=== PATIENT | female | born 1990 | race Two or more races ===

== ENCOUNTER 2017-01-15 09:39 | Emergency (ER) | payer OTHER ==
--- NOTE | 2017-01-15 09:46 | PDOC ---
History of Present Illness - General Chief Complaint: Nausea/Vomiting Stated Complaint: NAUSEA/ VOMITING Time Seen by Provider: 01/15/17 09:43 Past History - Past Medical History Allergies/Adverse Reactions: Allergies Allergy/AdvReac Type Severity Reaction Status Date / Time No Known Allergies Allergy Verified 01/15/17 09:41 Home Medications: Ambulatory Orders NK [No Known Home Medication] 05/15/14 Other medical history: none - Psycho/Social/Smoking Cessation Hx Anxiety: Yes Suicidal Ideation: No Smoking History: Never smoked Have you smoked in the past 12 months: No Number of Cigarettes Smoked Daily: 0 Information on smoking cessation initiated: No Hx Alcohol Use: No Drug/Substance Use Hx: No Substance Use Type: Alcohol Hx Substance Use Treatment: No *Physical Exam - Vital Signs Last Vital Signs Temp Pulse Resp BP Pulse Ox 98.5 F 140 H 18 139/73 100 01/15/17 09:41 01/15/17 09:41 01/15/17 09:41 01/15/17 09:41 01/15/17 09:41
[2017-01-15] MEDS ORDERED: SODIUM CHLORIDE 0.9% 500 ML INFUS.BAG IV STA (09:47)
[2017-01-15 09:56] VITALS: BMI 43.5
[2017-01-15 10:26] LABS: BASOPHIL 0.4 % (0-2.0); EOSINOPHIL 0.4 % (0-4.5); MCH 26.2 pg (25.7-33.7); MCHC 33.5 g/dl (32.0-36.0); MEAN CELL VOLUME 78.4 fl (80-96); MEAN PLT VOLUME 7.6 fl (7.5-11.1); NEUTROPHILS 84.5 % (42.8-82.8); PLATELET COUNT 302 K/MM3 (134-434); RDW 14.2 % (11.6-15.6); WHITE BLOOD COUNT 8.9 K/mm3 (4.0-10.0)
[2017-01-15 10:52] LABS: URINE APPEARANCE CLEAR; URINE BILIRUBIN NEGATIVE (NEGATIVE); URINE BLOOD NEGATIVE (NEGATIVE); URINE COLOR YELLOW; URINE GLUCOSE (UA) 1+ (NEGATIVE); URINE KETONE TRACE (NEGATIVE); URINE LEUK ESTERASE NEGATIVE (NEGATIVE); URINE NITRITE NEGATIVE (NEGATIVE); URINE PROTEIN NEGATIVE (NEGATIVE); URINE UROBILINOGEN NEGATIVE E.U./dl (0.2-1.0)
[2017-01-15 10:58] LABS: ALBUMIN 3.3 g/dl (3.4-5.0); ALK PHOS 67 U/L (45-117); ANION GAP 6 (8-16); BILIRUBIN,TOTAL 0.2 mg/dL (0.2-1.0); CALCIUM 8.4 mg/dL (8.5-10.1); CO2 26 mmol/L (21-32); CREATININE 0.8 mg/dL (0.55-1.02); GLUCOSE,RANDOM 93 mg/dL (74-106); SGOT/AST 13 U/L (15-37); SGPT/ALT 16 U/L (12-78); TOT PROT 6.9 g/dl (6.4-8.2)
--- NOTE | 2017-01-15 11:11 | PDOC ---
Attending Attestation - Resident Resident Name: Haydee Laurayvonosiel - HPI HPI: 01/15/17 15:13 26 y/o female presents to ed c/o nausea and vomiting with recent sick contacts, 01/15/17 15:14 - Physicial Exam PE: 01/15/17 15:14 Pt is non toxic appearing with a non focal physical exam - Medical Decision Making 01/15/17 15:15 26 y/o female with less than 24 hrs of nausea and vomiting started last night, pt with no pmd, presented to ed , was able to tolerate fluid with out vomitting labs noted and pt dc'd home
--- NOTE | 2017-01-15 12:04 | PDOC ---
History of Present Illness - General Chief Complaint: Nausea/Vomiting Stated Complaint: NAUSEA/ VOMITING Time Seen by Provider: 01/15/17 09:43 History Source: Patient Exam Limitations: No Limitations - History of Present Illness Initial Comments: 01/15/17 12:01 26 year old otherwise healthy female presenting with <24 hours of nausea, NBNB vomiting, and non-bloody diarrhea. States that she was fine a few days ago but noticed these symptoms yesterday evening. Her two nieces have had the same symptoms over the past few days. She has had some occasional chills. She denies any strange food ingestion, fevers, chest pain, palpitations or other sick signs. She does not have a PCP. Past History - Past Medical History Allergies/Adverse Reactions: Allergies Allergy/AdvReac Type Severity Reaction Status Date / Time No Known Allergies Allergy Verified 01/15/17 09:41 Home Medications: Ambulatory Orders NK [No Known Home Medication] 05/15/14 Other medical history: none - Psycho/Social/Smoking Cessation Hx Anxiety: Yes Suicidal Ideation: No Smoking History: Never smoked Have you smoked in the past 12 months: No Number of Cigarettes Smoked Daily: 0 Information on smoking cessation initiated: No Hx Alcohol Use: No Drug/Substance Use Hx: No Substance Use Type: Alcohol Hx Substance Use Treatment: No Review of Systems - Review of Systems Constitutional: No: Chills, Diaphoresis, Fever HEENTM: No: Eye Pain, Blurred Vision Respiratory: No: Shortness of Breath, SOB with Exertion Cardiac (ROS): No: Chest Pain, Irregular Heart Rate ABD/GI: Yes: Diarrhea, Nausea, Poor Appetite, Poor Fluid Intake, Vomiting, Indigestion, Abdominal cramping. No: Abdominal Distended, Abd. Pain w/ defecation, Constipated, Rectal Bleeding : No: Burning, Dysuria, Discharge Musculoskeletal: No: Back Pain, Gout, Joint Pain Integumentary: No: See HPI Neurological: No: Headache, Numbness, Paresthesia Psychiatric: No: Anxiety, Depression *Physical Exam - Vital Signs Last Vital Signs Temp Pulse Resp BP Pulse Ox 98.5 F 94 H 18 115/69 100 01/15/17 09:41 01/15/17 11:17 01/15/17 11:17 01/15/17 11:17 01/15/17 11:17 - Physical Exam General Appearance: Yes: Nourished, Appropriately Dressed. No: Apparent Distress HEENT: positive: EOMI, ALEJANDRO, Normal ENT Inspection, Normal Voice Respiratory/Chest: positive: Lungs Clear, Normal Breath Sounds. negative: Chest Tender, Respiratory Distress, Accessory Muscle Use Cardiovascular: positive: Regular Rhythm, Regular Rate, S1, S2 Gastrointestinal/Abdominal: positive: Normal Bowel Sounds, Flat, Soft. negative : Tender, Organomegaly Musculoskeletal: positive: Normal Inspection Extremity: positive: Normal Capillary Refill Integumentary: positive: Normal Color, Dry, Warm. negative: Cyanotic, Erythema Neurologic: positive: Fully Oriented, Alert ED Treatment Course - LABORATORY CBC & Chemistry Diagram: 01/15/17 10:15 01/15/17 10:15 - ADDITIONAL ORDERS Additional order review: Laboratory Results 01/15/17 01/15/17 10:15 10:15 Sodium 138 Potassium 4.4 Chloride 106 Carbon Dioxide 26 Anion Gap 6 L BUN 12 Creatinine 0.8 Creat Clearance w eGFR > 60 Random Glucose 93 Calcium 8.4 L Total Bilirubin 0.2 AST 13 L ALT 16 Alkaline Phosphatase 67 Total Protein 6.9 Albumin 3.3 L Serum , Qual Negative Urine Color Yellow Urine Appearance Clear Urine pH 7.0 Urine Protein Negative Urine Glucose (UA) 1+ H Urine Ketones Trace H Urine Blood Negative Urine Nitrite Negative Urine Bilirubin Negative Urine Urobilinogen Negative Ur Leukocyte Esterase Negative 01/15/17 10:15 RBC 4.84 MCV 78.4 L MCHC 33.5 RDW 14.2 MPV 7.6 Neutrophils % 84.5 H Lymphocytes % 11.2 Monocytes % 3.5 L Eosinophils % 0.4 Basophils % 0.4 - Medications Given in the ED: ED Medications Discontinued Medications Generic Name Dose Route Start Last Admin Trade Name Freq PRN Reason Stop Dose Admin Sodium Chloride 1,000 ml 01/15/17 09:47 01/15/17 10:23 Normal Saline - IV 01/15/17 09:48 1,000 ml ONCE STA Administration Medical Decision Making - Critical Care Time Total Critical Care Time (minutes): 15 - Medical Decision Making 01/15/17 11:13 26 year old otherwise healthy female presenting with gastroenteritis like symptoms in the setting of recent sick contacts with the same illness. Symptoms have been of one day duration without any symptomatic management. CBC, UA, and CMP were WNL and UPreg was negative. Physical exam was unimpressive. This is most likely a viral gastroenteritis. Patient can go home with symptomatic management. *DC/Admit/Observation/Transfer Diagnosis at time of Disposition: Gastroenteritis and colitis, viral - Discharge Dispostion Disposition: HOME Condition at time of disposition: Improved Admit: No - Patient Instructions Additional Instructions: You were seen for nausea, vomiting, and diarrhea for less than a day. We believe this is most likely a viral infection of your stomach which is a very common occurrence. You most likely got this from your nieces. We believe that you will get better in a few days. You should stay hydrated and try to eat foods that do not upset your stomach. If you do not notice improvement of your symptoms in a few days please return to the ED for further management. Also return to the ED if you are having fevers longer than a few hours, uncontrolled nausea, uncontrolled vomiting, bloody stools, or bloody vomiting. - Post Discharge Activity Work/School Note: Back to Work - Attestations Physician Attestion: 01/15/17 12:31 I, Dr. Moshe Laura, attest that this document has been prepared under my direction and personally reviewed by me in its entirety. I further attest, that it accurately reflects all work, treatment, procedures and medical decision -making performed by me.
[2017-01-15 12:46] VITALS: TEMP 98.2
[2017-01-15 12:47] VITALS: BP 128/77; PULSE 89
--- NOTE | 2017-01-17 13:53 | EKG ---
Test Reason : Blood Pressure : / mmHG Vent. Rate : 099 BPM Atrial Rate : 099 BPM P-R Int : 160 ms QRS Dur : 090 ms QT Int : 364 ms P-R-T Axes : 043 019 040 degrees QTc Int : 467 ms NORMAL SINUS RHYTHM NORMAL ECG NO PREVIOUS ECGS AVAILABLE Confirmed by FILIPPO ADORNO MD ([id number]) on 01/17/2017 1:53:07 PM Referred By: Confirmed By:FILIPPO ADORNO MD
== END 2017-01-15 12:47 | disposition home or self-care (01) ==
LOC: JER 09:39
DX: A08.4 Viral intestinal infection, unspecified (principal); B97.89 Other viral agents as the cause of diseases classified elsewhere
CPT/HCPCS: 36415; 80053; 81003; 84703; 85025; 93005; 93010; 99284-25

== ENCOUNTER 2018-09-08 10:03 | Emergency (ER) | payer OTHER ==
[2018-09-08 10:12] VITALS: BP 136/87; PULSE 90; TEMP 98.2; BMI 47.5
--- NOTE | 2018-09-08 10:51 | PDOC ---
History of Present Illness - General History Source: Patient - History of Present Illness Presenting Symptoms: Chest Pain - General Chief Complaint: Chest Pain Stated Complaint: CHEST PAIN Time Seen by Provider: 09/08/18 10:26 Past History - Past Medical History COPD: No Psychiatric Problems: Yes (ANXIETY & DEPRESSION) Other medical history: POLY CYSTIC OVARIAN SYNDROME - Immunization History Immunization Up to Date: Yes - Suicide/Smoking/Psychosocial Hx Smoking History: Never smoked Have you smoked in the past 12 months: No Number of Cigarettes Smoked Daily: 0 Hx Alcohol Use: No Drug/Substance Use Hx: No Substance Use Type: Alcohol Hx Substance Use Treatment: No - Past Medical History Allergies/Adverse Reactions: Allergies Allergy/AdvReac Type Severity Reaction Status Date / Time No Known Allergies Allergy Verified 01/15/17 09:41 Home Medications: Ambulatory Orders NK [No Known Home Medication] 05/15/14 Review of Systems - Review of Systems Respiratory: No: Shortness of Breath Cardiac (ROS): Yes: Chest Pain. No: Lightheadedness, Palpitations, Syncope *Physical Exam - Physical Exam General Appearance: Yes: Appropriately Dressed. No: Apparent Distress HEENT: positive: Normal Voice Neck: positive: Supple Respiratory/Chest: positive: Lungs Clear, Normal Breath Sounds. negative: Respiratory Distress Cardiovascular: positive: Regular Rate, S1, S2 Extremity: positive: Normal Inspection Integumentary: positive: Dry, Warm Neurologic: positive: Fully Oriented, Alert, Normal Mood/Affect - Vital Signs Last Vital Signs Temp Pulse Resp BP Pulse Ox 98.2 F 90 16 136/87 100 09/08/18 10:08 09/08/18 10:08 09/08/18 10:08 09/08/18 10:08 09/08/18 10:08 - Procedure Monitoring Vital Signs: Procedure Monitoring Vital Signs Temperature 98.2 F 09/08/18 10:08 Pulse Rate 90 09/08/18 10:08 Respiratory Rate 16 09/08/18 10:08 Blood Pressure 136/87 09/08/18 10:08 O2 Sat by Pulse Oximetry (%) 100 09/08/18 10:08 Medical Decision Making - Medical Decision Making 09/08/18 10:49 28 yo F, morbid obesity, PCOS, p/w chest pain. Pt states while on the train at about 8 AM this morning, she developed pressure-like substernal chest pain that radiated to her back, was intermittent and worse with deep inspiration. States symptoms lasted for 2 hours and has since resolved. No shortness of breath, diaphoresis, cough, fever or chills. No history of similar pain. No significant family history. No illicit drug use. Only recent travel was to [place] by bus over a week ago. No palpitations, leg pain/swelling See exam CP in young female w/ no sig pmhx Since resolved Unlikely ACS and doubt PE, no recent URI to suspect pericarditis Stable w/ normal exam EKG done and unremarkable as d/w ED attg No further w/u needed in ED as d/w attg -will dc w/ instruction to return to ED as needed (Cuate Connolly) *DC/Admit/Observation/Transfer Diagnosis at time of Disposition: Chest pain Qualifiers: Chest pain type: unspecified Qualified Code(s): R07.9 - Chest pain, unspecified - Discharge Dispostion Disposition: HOME Condition at time of disposition: Improved - Referrals Referrals: ON STAFF,NOT [Primary Care Provider] - - Patient Instructions Printed Discharge Instructions: DI for Chest Pain Additional Instructions: The cause of your chest pain is unclear at this time as your exam and your EKG was normal. If symptoms recur and persist and/or worsen, please return to the ER for further evaluation then - Post Discharge Activity Forms/Work/School Notes: Back to Work - Attestations Physician Attestion: I reviewed the case with the mid-level practitioner and agree with the mid- level practitioner's assessment, diagnosis and disposition. (Migdalia Ignacio)
--- NOTE | 2018-09-11 11:07 | EKG ---
Test Reason : Blood Pressure : / mmHG Vent. Rate : 092 BPM Atrial Rate : 092 BPM P-R Int : 170 ms QRS Dur : 080 ms QT Int : 378 ms P-R-T Axes : 036 007 025 degrees QTc Int : 467 ms NORMAL SINUS RHYTHM MINIMAL VOLTAGE CRITERIA FOR LVH, MAY BE NORMAL VARIANT BORDERLINE ECG WHEN COMPARED WITH ECG OF 15-JAN-2017 10:00, NO SIGNIFICANT CHANGE WAS FOUND Confirmed by TILA CR, FILIPPO ([id number]) on 09/11/2018 11:06:40 AM Referred By: Confirmed By:FILIPPO ADORNO MD
== END 2018-09-08 11:30 | disposition home or self-care (01) ==
LOC: JER 10:03
DX: R07.9 Chest pain, unspecified (principal); E66.01 Morbid (severe) obesity due to excess calories; Z68.42 Body mass index [BMI] 45.0-49.9, adult; F41.8 Other specified anxiety disorders
CPT/HCPCS: 93005; 93010; 99281-25

== ENCOUNTER 2022-04-05 19:32 | Emergency (ER) | payer OTHER ==
[2022-04-05 20:06] VITALS: PULSE 84; RESP 19; BMI 45.7
[2022-04-05] MEDS ORDERED: ACETAMINOPHEN 1000 MG/100 ML BAG IVPB ONE (21:39)
[2022-04-05] MEDS ORDERED: ACETAMINOPHEN INJECTION 100 ML IVPB ONE (21:55)
[2022-04-05 22:33] LABS: BASO % 0.5 % (0-2.0); EOS % 0.5 % (0-4.5); HEMATOCRIT 38.3 % (32.4-45.2); HEMOGLOBIN 12.8 GM/dL (10.7-15.3); LYMPH % 29.5 % (8-40); MCH 26.5 pg (25.7-33.7); MCHC 33.4 g/dl (32.0-36.0); MEAN CELL VOLUME 79.4 fl (80-96); MEAN PLT VOLUME 7.5 fl (7.5-11.1); MONO % 4.3 % (3.8-10.2); NEUT % 65.2 % (42.8-82.8); PLATELET COUNT 412 10^3/uL (134-434); RBC 4.82 M/mm3 (3.60-5.2); RDW 14.2 % (11.6-15.6); WHITE BLOOD COUNT 12.6 K/mm3 (4.0-10.0)
[2022-04-05 22:37] LABS: PH,URINE 5.5 (5.0-8.0); URINE APPEARANCE CLEAR; URINE BILIRUBIN NEGATIVE (NEGATIVE); URINE COLOR YELLOW; URINE GLUCOSE (UA) NEGATIVE (NEGATIVE); URINE KETONE NEGATIVE (NEGATIVE); URINE LEUK ESTERASE NEGATIVE (NEGATIVE); URINE NITRITE NEGATIVE (NEGATIVE); URINE PROTEIN NEGATIVE (NEGATIVE); URINE UROBILINOGEN 0.2 mg/dL (0.2-1.0)
[2022-04-05 22:39] LABS: HCG,QUALITATIVE URINE Negative
[2022-04-05 22:54] LABS: ALBUMIN 3.6 g/dl (3.4-5.0); BLOOD UREA NITROGEN 12.5 mg/dL (7-18); CALCIUM 8.8 mg/dL (8.5-10.1)
[2022-04-05 22:57] LABS: CREATININE 0.9 mg/dL (0.55-1.3)
[2022-04-05 22:59] LABS: BILIRUBIN,TOTAL 0.3 mg/dL (0.2-1); TOT PROT 7.6 g/dl (6.4-8.2)
[2022-04-05] MEDS ORDERED: SODIUM CHLORIDE 0.9% 500 ML INFUS.BAG IV ONE (23:58)
[2022-04-06 02:04] VITALS: BP 103/71; TEMP 98.5
== END 2022-04-06 02:34 | disposition home or self-care (01) ==
LOC: JER 19:32
PROC: 3E0333Z Introduction of Anti-inflammatory into Peripheral Vein, Percutaneous Approach (ICD-10-PCS; principal; 2022-04-05)
DX: R10.9 Unspecified abdominal pain (principal)
CPT/HCPCS: 36415; 74176-TC; 80053; 81003; 84703; 85025; 87086; 93005; 93010; 99285-25

== ENCOUNTER 2022-06-12 14:35 | Emergency (ER) | payer OTHER ==
[2022-06-12 15:10] VITALS: BP 120/86; PULSE 86; RESP 18; TEMP 98.6; BMI 45.7
[2022-06-12] MEDS ORDERED: MECLIZINE HCL 12.5 MG TABLET PO ONE (16:36)
[2022-06-12] MEDS ORDERED: ACETAMINOPHEN 325 MG TABLET (FP) PO ONE (16:36)
[2022-06-12 16:51] LABS: EPI CELLS 22 /uL (0-25.1); HYALINE CASTS 3 /uL (0-3.1); PH,URINE 5.5 (5.0-8.0); URINE APPEARANCE CLOUDY; URINE BACTERIA 457 /uL (0-1359); URINE BILIRUBIN NEGATIVE (NEGATIVE); URINE COLOR DK YELLOW; URINE GLUCOSE (UA) NEGATIVE (NEGATIVE); URINE KETONE TRACE (NEGATIVE); URINE LEUK ESTERASE TRACE (NEGATIVE); URINE NITRITE NEGATIVE (NEGATIVE); URINE PROTEIN 2+ (NEGATIVE); URINE RBC 30 /uL (0-23.9); URINE WBC 26 /uL (0-25.8)
[2022-06-12] MEDS ORDERED: ACETAMINOPHEN 325 MG TABLET (FP) ONE (16:56)
[2022-06-12] MEDS ORDERED: MECLIZINE HCL 12.5 MG TABLET ONE (16:56)
[2022-06-12 17:36] LABS: BASO % 1.2 % (0-2.0); EOS % 0.8 % (0-4.5); HEMOGLOBIN 13.3 GM/dL (10.7-15.3); LYMPH % 31.1 % (8-40); MCH 25.8 pg (25.7-33.7); MCHC 32.5 g/dl (32.0-36.0); MEAN CELL VOLUME 79.4 fl (80-96); MONO % 5.8 % (3.8-10.2); NEUT % 61.1 % (42.8-82.8); PLATELET COUNT 497 10^3/uL (134-434); RBC 5.16 M/mm3 (3.60-5.2); RDW 14.4 % (11.6-15.6); WHITE BLOOD COUNT 9.6 K/mm3 (4.0-10.0)
[2022-06-12 17:49] LABS: URINE CRYSTALS CA OXALATE /hpf
[2022-06-12 17:54] LABS: ALBUMIN 3.6 g/dl (3.4-5.0); BLOOD UREA NITROGEN 12.9 mg/dL (7-18); CALCIUM 9.5 mg/dL (8.5-10.1); MAGNESIUM 2.4 mg/dL (1.8-2.4)
[2022-06-12 17:57] LABS: CREATININE 0.9 mg/dL (0.55-1.3)
[2022-06-12 17:59] LABS: BILIRUBIN,TOTAL 0.5 mg/dL (0.2-1); TOT PROT 7.6 g/dl (6.4-8.2)
== END 2022-06-12 20:56 | disposition home or self-care (01) ==
LOC: JER 14:35
DX: R53.1 Weakness (principal)
CPT/HCPCS: 0241U-QW; 36415; 70450-TC; 70496-TC; 70498-TC; 80053; 81003; 83735; 84703; 85025; 87086; 93005; 93010; 99285-25